=== PATIENT | male | born 1945 | race Caucasian/White ===

== ENCOUNTER 2017-04-03 21:04 | Emergency (ER) | payer MEDICARE, OTHER ==
[2017-04-03 22:13] LABS: BASOPHILS % 0.7 (0.0-1.5); MEAN CORPUSCULAR VOLUME 97.6 fl (80.0-100.0); MONOCYTES % 5.9 % (0.0-11.0); NEUTROPHILS # 6.6 # k/uL (1.4-7.7)
[2017-04-03 22:23] LABS: eGFR (African) > 60; eGFR (Non-African) > 60
--- NOTE | 2017-04-03 22:33 | ED Physician Documentation ---
Lower Extremity Problem - HISTORIAN Historian: patient, spouse - HPI Stated Complaint: left knee pain Chief Complaint: Lower Extremity Problem Additional Information: 2 days left knee redness, swelling, pain. Had been working under RV on his knees , without knee pads. Has historically had gout attacks only in right foot. Started colchicine today, 2 tabs total. 200 mg Allopurinol daily. No fevers. Knee feels better with rest, elevation, ice. - ROS CONST: no problems - PAST HX Past History: other (gout, a fib, on Pridaxa) PE Risk Factors: hypertension Allergies/Adverse Reactions: Allergies Allergy/AdvReac Type Severity Reaction Status Date / Time No Known Allergies Allergy Verified 04/03/17 21:17 Home Medications: Ambulatory Orders Medication Instructions Recorded Allopurinol [Zyloprim] 200 mg PO QD 04/03/17 Telmisartan [Micardis] 80 mg PO QDAY 04/03/17 amLODIPine BESYLATE [Norvasc] 2.5 mg PO QDAY 04/03/17 - SOCIAL HX Smoking History: non-smoker - FAMILY HX Family History: no significant history - VITAL SIGNS Vital Signs: Vital Signs Temp Pulse Resp BP Pulse Ox 55 L 16 167/76 97 04/03/17 21:15 04/03/17 21:15 04/03/17 21:15 04/03/17 21:15 - REVIEWED ASSESSMENTS Nursing Assessment Reviewed: Yes Vitals Reviewed: Yes Progress - Progress Progress: Right knee, 3 views. History: SWELLING, PAIN AROUND PATELLA, REDNESS Findings: The osseous structures are intact without acute fracture. The joint space and alignment are normal. There is no soft tissue swelling. Impression: 1. No acute osseous abnormality. Electronically signed on Apr 03, 2017 9:37:48 PM CDT by: Gregg Juan ED Results Lab/Radiology - Lab Results Lab Results: Lab Results 04/03/17 04/03/17 04/03/17 22:02 22:02 22:02 WBC 8.80 K/ul K/ul (4.00-12.00) RBC 4.54 M/ul M/ul (3.90-5.20) Hgb 15.4 g/dL g/dL (12.0-18.0) Hct 44.3 % % (37.0-53.0) MCV 97.6 fl fl (80.0-100.0) MCH 34.0 pg pg (28.0-34.0) MCHC 34.9 g/dL g/dL (30.0-36.0) RDW 13.0 % % (11.3-14.3) Plt Count 186 K/mm3 K/mm3 (130-400) Neut % (Auto) 75.5 % % (39.0-79.0) Lymph % (Auto) 14.5 % L % (16.0-50.0) [place] % (Auto) 5.9 % % (0.0-11.0) Eos % (Auto) 2.0 % % (0.0-6.8) Baso % (Auto) 0.7 (0.0-1.5) Neut # (Auto) 6.6 # k/uL # k/uL (1.4-7.7) Lymph # (Auto) 1.3 # k/uL # k/uL (0.6-4.0) [place] # (Auto) 0.5 # k/uL # k/uL (0.0-0.9) Eos # (Auto) 0.2 # k/uL # k/uL (0.0-0.6) Baso # (Auto) 0.1 # k/uL # k/uL (0.0-0.5) Reactive Lymphs % 1.5 % % (0.0-5.0) Reactive Lymphs # 0.1 # k/uL # k/uL (0.0-0.8) Sodium 135 mmol/L L mmol/L (136-145) Potassium 4.3 mmol/L mmol/L (3.5-5.0) Chloride 104 mmol/L mmol/L (98-110) Carbon Dioxide 26 mmol/L mmol/L (20-32) BUN 13 mg/dL mg/dL (10-26) Creatinine 0.7 mg/dL mg/dL (0.4-1.5) Estimated Creat Clear 126 Est GFR ( Amer) > 60 (60 - ) Est GFR (Non-Af Amer) > 60 (60 - ) Glucose 162 mg/dL H mg/dL (70-99) Uric Acid 5.4 mg/dL mg/dL (2.0-7.8) Calcium 9.7 mg/dL mg/dL (8.5-10.5) Total Bilirubin 0.7 mg/dL mg/dL (0.2-1.2) AST 23 U/L U/L (0-41) ALT 40 U/L U/L (0-45) Alkaline Phosphatase 65 U/L U/L (46-116) Total Protein 7.2 g/dL g/dL (6.0-8.5) Albumin 4.4 g/dL g/dL (3.0-5.5) - Orders Orders: ED Orders Category Date Time Status KNEE 3 VIEWS [RAD] Stat Exams 04/03/17 Taken CBC/PLATELET/DIFF Routine Lab 04/03/17 22:02 Completed CMP [CMP] Routine Lab 04/03/17 22:02 Completed URIC ACID Stat Lab 04/03/17 22:02 Completed Lower Extremity Problem - EXAM General Appearance: no distress Hips: bilateral hip: no evidence of injury Legs: bilateral: normal inspection, normal range of motion, no evidence of injury Knees: right: non-tender, normal inspection, no evidence of injury, left: swelling (effusion, erythema over ant knee, non-tender, warmth) Ankle: bilateral: normal inspection, no evidence of injury Foot: bilateral foot: normal inspection, no evidence of injury Neuro/Tendon: normal sensation, normal motor functions, normal tendon functions , other (left DP and PT 1+) EENT: eye inspection normal, ENT inspection normal RESPIRATORY: no resp distress JOINT: joints nml (except left knee, as above) VASCULAR: no vascular compromise NEURO/PSYCH: CN's nml as tested, motor nml, sensation nml, cognition normal SKIN: warm/dry, normal color (except as above) BACK: other (movements w/o pain) Discharge Clincal Impression: Knee pain, acute Qualifiers: Laterality: left Qualified Code(s): M25.562 - Pain in left knee Referrals: Primary Doctor,No [Primary Care Provider] - 2 Days Home Medications: Ambulatory Orders Allopurinol [Zyloprim] 200 mg PO QD 04/03/17 Telmisartan [Micardis] 80 mg PO QDAY 04/03/17 amLODIPine BESYLATE [Norvasc] 2.5 mg PO QDAY 04/03/17 Condition: Fair Disposition: 01 HOME, SELF-CARE Decision to Admit: NO Decision Time: 22:33
[2017-04-03] MEDS: predniSONE 10 MG TABLET PO ONE (22:36)
[2017-04-03] MEDS ORDERED: predniSONE 20 MG TABLET PO ONE (22:38)
[2017-04-03 22:54] VITALS: BP 145/96
--- NOTE | 2017-04-04 06:42 | Diagnostic Imaging Report ---
THEODORA JEROME~ [facility] [id number] [facility].[address] [address] ~ ~ ~ ~ Report Submission Date: Apr 03, 2017 9:37:48 PM CDT Patient ~ Study Name: HARINDER ADAM ~ Date: Apr 03, 2017 9:18:09 PM CDT ~ Modality Type: CR Gender: M ~ Description: LOWER EXTREMITY : 47 ~ Institution: [facility] Physician: THEODORA JEROME ~ ~ ~ ~ Right knee, 3 views. History: SWELLING, PAIN AROUND PATELLA, REDNESS Findings: The osseous structures are intact without acute fracture. The joint space and alignment are normal. There is no soft tissue swelling. Impression: 1. No acute osseous abnormality. ~ Electronically signed on Apr 03, 2017 9:37:48 PM CDT by: Gregg VÁZQUEZ
== END 2017-04-03 22:40 | disposition home or self-care (01) ==
LOC: ED 21:04
DX: M25.562 Pain in left knee (principal)
CPT/HCPCS: 73562; 80053; 84550; 85025; J7512; 99283